=== PATIENT | female | born 1945 | race Caucasian/White ===

== ENCOUNTER → 2016-06-22 | Outpatient (CLI) | payer MEDICARE, OTHER ==
[~2016-06-22] MED LIST: CALTRATE-600 D600 MG PO; FLAGYL-DPS500 MG PO; LYRICA75 MG PO; MAGNESIUM250 M1 PO; TYSABRI300 MG/15 IV; VANTIN100 MG PO; VITAMIN B-12500 MCG PO; VITAMIN D31000 UNIT PO; VITAMIN E400 UNIT PO; XANAX DPS0.25 MG PO; ZYRTEC DPS10 MG PO
== END | disposition home or self-care (01) ==
LOC: RAD.S 06-16 14:33
DX: G35 Multiple sclerosis (principal); R20.0 Anesthesia of skin; R20.9 Unspecified disturbances of skin sensation; G93.89 Other specified disorders of brain; M50.30 Other cervical disc degeneration, unspecified cervical region

== ENCOUNTER 2016-07-13 00:07 | Inpatient (IN) | payer MEDICARE, OTHER ==
[~2016-07-13] VITALS: Ht 165.1 cm; Wt 52.7 kg
--- NOTE | 2016-07-15 13:14 | ER ---
ADMIT: 07/13/2016 RM/LOC: 519 [facility] MR#: [id number] [id number] [place], [place] [address] ASHLEE CAMPA [address] [place] [address] Emergency Room Report SEX: F AGE: 70 : 1945 DATE: 07/13/2016 HISTORY OF PRESENT ILLNESS: The patient is a 70-year-old female with a past medical history of diverticulitis, MS, came to the ER with chief complaint of lower bilateral abdominal pain for 1 day, which is crampy and sharp and auymftoz-ap-kpeuyn in severity, also nausea. The patient states she is to have bowel movement once a day, but the last 3 days, she has no bowel movement and did not pass gas. PHYSICAL EXAMINATION: HEAD and NECK: Normal. CHEST: Clear bilaterally. HEART: Normal heart sounds without any murmurs or gallops. ABDOMEN: Has mild tenderness in bilateral lower abdomen. I heard bowel sounds in all quadrants. There is no rebound. There is no CVA tenderness. The rest of the physical examination is noncontributory and negative. LABORATORY DATA AND IMAGING: The patient had white blood cell of 11.2, with hemoglobin of 13.7, and platelet of 104,000. Lactic acid level was 1.5, creatinine was 0.7, lipase was 513, with AST and ALT of 20 and 31 respectively. Urine was positive for [address] of the abdomen and pelvis was positive for ileus and diverticulitis without any evidence of obstruction. Pain was controlled. The patient received IV fluid. DIAGNOSES: With diagnoses of diverticulitis, ileus, and abdominal pain, the patient was admitted for further followups and treatments. Javier Su MD/ daya JOB #: [id number] CC: Kulwinder Davidson MD, Attending Physician Kulwinder Davidson MD, Family Physician
[2016-07-16] MEDS ORDERED: XANAX DPS0.25 MG PO (12:31)
[2016-07-16] MEDS ORDERED: ZYRTEC DPS10 MG PO (12:31)
[2016-07-16] MEDS ORDERED: LYRICA75 MG PO (12:31)
[2016-07-16] MEDS ORDERED: CALTRATE-600 D600 MG PO (12:32)
[2016-07-16] MEDS ORDERED: MAGNESIUM250 M1 PO (12:32)
[2016-07-16] MEDS ORDERED: VITAMIN B-12500 MCG PO (12:32)
[2016-07-16] MEDS ORDERED: VITAMIN E400 UNIT PO (12:32)
[2016-07-16] MEDS ORDERED: VITAMIN D31000 UNIT PO (12:32)
[2016-07-16] MEDS ORDERED: TYSABRI300 MG/15 IV (12:33)
[2016-07-16] MEDS ORDERED: VANTIN100 MG PO (12:33)
[2016-07-16] MEDS ORDERED: FLAGYL-DPS500 MG PO (12:34)
--- NOTE | 2016-07-16 19:49 | HP ---
ADMIT: 07/13/2016 RM/LOC: 519 [facility] MR#: [id number] [address] [address] ASHLEE CAMPA [address] [place] [address] History and Physical SEX: F AGE: 70 : 1945 DATE OF SERVICE: CHIEF COMPLAINT: Abdominal pain. HISTORY OF PRESENT ILLNESS: The patient is a very pleasant, 70-year-old female, known to me from clinic, who reports about 2 weeks of just overall not feeling well, increasing abdominal pain, and discomfort. Very vague for her. Over the last 3 days, however, has had bad constipation. Called in, got some advice from the office yesterday, took some mag citrate last night. Had increasing pain overnight and so presented to the emergency room. Had some mild subjective fevers at home, this started last night. No rigors. No shortness of breath. No nausea. No emesis. Got her Tysabri infusion on Sunday. It went overall well. Otherwise been getting around okay. PAST MEDICAL HISTORY: 1. Multiple sclerosis, longstanding. 2. 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 3. Chronic lymphedema. 4. Fibromyalgia. 5. Hyperlipidemia. 6. History of hysterectomy. 7. Chronic neuropathy. 8. History of trigeminal neuralgia. 9. Osteoporosis. 10.Vitamin D deficiency. 11.Chronic migraines. 12.Diverticulosis. MEDICATIONS: She is on: 1. Alprazolam. 2. Calcium carbonate. 3. Vitamin B12. 4. Mag-Ox. 5. Myrbetriq. 6. Multivitamin. 7. Tysabri IV infusion monthly. 8. Zofran p.r.n. 9. Lyrica daily. 10.Vitamin E. ALLERGIES: INCLUDE AUGMENTIN, BACTRIM, CIPRO, NAPROSYN, AND ZITHROMAX. PAST SURGICAL HISTORY: Includes spine surgery, breast surgery, cholecystectomy, hysterectomy, tonsils and adenoidectomy, back surgery, and sinus surgery. FAMILY HISTORY: Significant for cancer in her mother, stomach; breast cancer in her grandmother, Takayasu's disease and MS in a daughter. ADMIT: 07/13/2016 RM/LOC: 519 [facility] MR#: [id number] [address] [address] ASHLEE CAMPA [address] [place] [address] History and Physical SEX: F AGE: 70 : 1945 SOCIAL HISTORY: Lives at home with her . Nonsmoker. Has been on disability for her MS for quite some time unfortunately. PHYSICAL EXAMINATION: VITAL SIGNS: Temperature 98.2, pulse 79, respiratory rate 16, blood pressure 129/57, O2 saturation 97% on room air. GENERAL: She is alert and oriented x3. No acute distress. Very pleasant as always. HEENT: Normocephalic, atraumatic. Pupils are equal bilaterally. No icterus. Dry mucous membranes. NECK: No lymphadenopathy. Soft, supple. Trachea midline. LUNGS: Clear to auscultation bilaterally. No wheezes, rales, or rhonchi. HEART: Regular rate and rhythm. No murmurs, rubs, or gallops. ABDOMEN: Soft. She has gsdwopn-ju-tssswnna tenderness throughout. Worse at the bilateral lower quadrants. Bowel sounds present. Normal. No guarding. No rigidity. EXTREMITIES: No cyanosis or clubbing. She has 1+ edema bilateral lower extremities which is stable for her. MUSCULOSKELETAL: 5/5 strength in all 4 extremities. Easy fatigability. NEUROLOGICAL: No focal deficits other than decreased sensation, bilateral lower extremities. SKIN: No new rashes. LABORATORY AND X-RAY DATA: Her CT scan consistent suggestive of diverticulitis. Creatinine 0.7, white count 11.2, platelets 104, sodium 139, potassium 3.7. UA is negative. Lipase slightly elevated at 513. ASSESSMENT: 1. Acute diverticulitis. 2. Multiple sclerosis. PLAN: At this point in time, we will give her some bowel rest, some IV antibiotics, rehydration. Monitor and see how she does. She had quite a few allergies, so we will have to see how she does with current antibiotics, so that we choose them to go home on. The patient is agreeable to plan. I do not think much in the way of her lipase. I do not think she is more. I do not think she is really consistent with pancreatitis. Her pancreas looks okay on her CT scan. We will see what her lipase is in the morning and see our clinical course goes. Kulwinder Davidson MD/ daya JOB #: [id number] CC: Kulwinder Davidson, Attending Physician Kulwinder Davidson, Family Physician
--- NOTE | 2016-07-16 19:49 | DS ---
ADMIT: 07/13/2016 RM/LOC: 519 [facility] MR#: [id number] [address] [address] ASHLEE CAMPA [address] [place] [address] Discharge Summary SEX: F AGE: 70 : 1945 ADMISSION DATE: 07/13/2016 DISCHARGE DATE: 07/15/2016 ATTENDING AT TIME OF DISCHARGE: Kulwinder Davidson MD CONSULTATIONS: None. PROCEDURES: None. FINAL DIAGNOSES: 1. Acute diverticulitis. 2. Multiple sclerosis. 3. Chronic neuropathy. 4. Chronic edema. REASON FOR ADMISSION: The patient is a 70-year-old female, who presented to the emergency room with severe abdominal pain. A head CT scan, concerning for diverticulitis. Admitted for further stabilization. HOSPITAL COURSE: The patient was admitted. Placed on IV antibiotics. She slowly and steadily improved. Ultimately felt safe and stable for discharge to home with followup as an outpatient. DISCHARGE INSTRUCTIONS: She will discharge to home. Please see discharge med list for full details. She will complete 5 days of Vantin as well as 5 days of Flagyl. Follow up with me in 2-4 weeks in clinic. Kulwinder Davidson MD/ jaxon JOB #: [id number] CC: Kulwinder Davidson MD, Attending Physician Kulwinder Davidson MD, Family Physician
== END 2016-07-15 11:05 | disposition home or self-care (01) | DRG 392 ==
LOC: ER 00:07 → 5MS 02:42
PROVIDERS: ADMIT Internal Medicine
DX: K57.92 Diverticulitis of intestine, part unspecified, without perforation or abscess without bleeding (principal); G35 Multiple sclerosis; G90.529 Complex regional pain syndrome I of unspecified lower limb; G62.9 Polyneuropathy, unspecified; K59.00 Constipation, unspecified; I89.0 Lymphedema, not elsewhere classified; M79.7 Fibromyalgia; E78.5 Hyperlipidemia, unspecified; G50.0 Trigeminal neuralgia; M81.0 Age-related osteoporosis without current pathological fracture; E55.9 Vitamin D deficiency, unspecified